=== PATIENT | male | born 1930 | race Caucasian/White ===

== ENCOUNTER 2020-10-12 22:09 | Inpatient (IN) | payer MEDICARE, BC ==
[2020-10-12] MEDS ORDERED: Ketorolac Tromethamine 30 MG/ML VIAL IVP PRN (22:23)
[2020-10-12] MEDS ORDERED: Morphine 4 MG/ML VIAL SLOW IVP PRN (22:25)
[2020-10-12] MEDS ORDERED: Ondansetron ODT 8 MG TAB PO PRN (22:28)
[2020-10-12] MEDS ORDERED: CEFAZOLIN 2 GM in Premix Bag 1 BAG IVPB SCH (22:30)
[2020-10-12] MEDS ORDERED: Ketorolac Tromethamine 30 MG/ML VIAL IVP SCH (22:30)
[2020-10-12] MEDS: Lactated Ringer's 1,000 ML IV SCH (22:50)
[2020-10-13 00:05] VITALS: BMI 26.3
[2020-10-13] MEDS: Ondansetron PF 4 MG/2 ML Vial IVP PRN ×2 (01:01→18:11)
[2020-10-13] MEDS: Lactated Ringer's 1,000 ML IV SCH ×2 (08:50→17:36)
[2020-10-13] MEDS ORDERED: Lidocaine 1% w/Epinephrine 1:100K 20 ML VIAL ONE (10:26)
[2020-10-13] MEDS ORDERED: Bupivacaine PF 0.5% 30 ML VIAL ONE (10:26)
[2020-10-13] MEDS ORDERED: Fentanyl 100 MCG/2 ML VIAL ONE ×2 (10:31→13:36)
[2020-10-13] MEDS ORDERED: Lidocaine 2% Jelly 5 ML TUBE ONE (10:53)
[2020-10-13] MEDS ORDERED: PROPOFOL 200 MG/20 ML VIAL ONE (10:55)
[2020-10-13] MEDS ORDERED: Labetalol HCl 100 MG/20 ML VIAL ONE (10:55)
[2020-10-13] MEDS ORDERED: Rocuronium Bromide 10 MG/ML (10ML VIAL) ONE (10:55)
[2020-10-13] MEDS ORDERED: Succinylcholine 200 MG/10 ml SYRINGE FS ONE (10:55)
[2020-10-13] MEDS ORDERED: Lidocaine 1% PF 5 ML VIAL ONE (10:55)
[2020-10-13] MEDS ORDERED: Glycopyrrolate 0.2 MG/ML 5 ML SYRINGE ONE (10:55)
[2020-10-13] MEDS ORDERED: ePHEDrine Sulfate 50 MG/10 ML VIAL ONE (10:55)
[2020-10-13] MEDS ORDERED: Ondansetron PF 4 MG/2 ML Vial ONE (10:55)
[2020-10-13] MEDS ORDERED: Ibuprofen 600 MG TAB PO PRN (12:36)
[2020-10-13] MEDS ORDERED: traMADol HCl 50 MG TAB PO PRN (12:36)
[2020-10-13] MEDS: Acetaminophen 500 MG TAB PO PRN (16:32)
[2020-10-13] MEDS: Amlodipine 10 MG TAB PO SCH (21:20)
[2020-10-13] MEDS: Pregabalin 75 MG CAP PO SCH (21:20)
[2020-10-13] MEDS: Enoxaparin Sodium 40 MG/0.4 ML SYRINGE SC SCH (21:21)
[2020-10-13] MEDS: Venlafaxine XR 37.5 MG CAP PO SCH (21:22)
[2020-10-14] MEDS: Ondansetron PF 4 MG/2 ML Vial IVP PRN ×3 (01:30→23:28)
[2020-10-14] MEDS ORDERED: Promethazine HCl 25 MG/ML VIAL IM SCH (01:45)
[2020-10-14] MEDS: Lactated Ringer's 1,000 ML IV SCH ×3 (04:50→23:31)
[2020-10-14 06:19] LABS: Actual Bicarbonate (HCO3a) 27.8 mEq/L (22-28); Base Excess (BEa) 3.5 mEq/L (-2.0 to +3.0); Calcium, Ionized (arterial) 1.08 mmol/L (1.12-1.30); Carboxyhemoglobin (COHb) 0.9 gm% (0.0-3.0); Hemoglobin (Hb) 12.9 g/dL (14.0-18.0); Potassium - ABG Lab 3.61 mmol/L (3.70-5.30); pH, Arterial 7.45 (7.35-7.45)
[2020-10-14 06:24] LABS: O2 Tension (PaO2), arterial 52.5 mmHg (> 60.0)
[2020-10-14 06:25] LABS: Puncture Site LBA
[2020-10-14 10:20] LABS: Hemoglobin 12.4 g/dL (14.0-18.0); Mean Corpuscular HGB CONC 34.2 g/dL (32.0-36.0); Mean Corpuscular Hemoglobin 34.1 pg (27.0-31.0); Mean Corpuscular Volume 99.7 fL (78.0-98.0); Mean Platelet Volume 8.1 fL (7.4-10.4); Platelet Count 148 thou/uL (130-400); RBC Distribution Width 12.6 % (11.5-14.5); Red Blood Cell (RBC) Count 3.62 mill/uL (4.70-6.10); White Blood Cell (WBC) Count 6.9 thou/uL (4.8-10.8)
[2020-10-14] MEDS ORDERED: Venlafaxine HCl XR 75 MG CAP PO SCH (10:30)
[2020-10-14 10:39] LABS: ALT (SGPT) 12 U/L (8-55); AST (SGOT) 29 U/L (5-34); Albumin 3.5 g/dL (3.4-4.8); Alkaline Phosphatase 63 U/L (40-110); Anion Gap 11 mmol/L (10-20); BUN (Urea Nitrogen) 19 mg/dL (8.4-25.7); Bilirubin, Total 0.7 mg/dL (0.2-1.2); Calc. Creatinine Clearance 88 mL/min (70-130); Calcium 8.4 mg/dL (7.8-10.44); Carbon Dioxide 26 mmol/L (23-31); Chloride 105 mmol/L (98-107); Glucose 114 mg/dL (83-110); Potassium 3.9 mmol/L (3.5-5.1); Protein, Total 6.5 g/dL (5.8-8.1); Sodium 138 mmol/L (136-145)
[2020-10-14 10:43] LABS: Band 33 % (5-11); Lymphocytes 12 % (21-51); MDiff Complete? YES; Monocytes 1 % (0-10); Neutrophil 54 % (42-75); Platelet Morphology Comment Appears Adequate; RBC Morphology Normal
[2020-10-14] MEDS: Venlafaxine XR 37.5 MG CAP PO SCH (11:22)
[2020-10-14] MEDS: Pregabalin 75 MG CAP PO SCH ×2 (11:23→21:11)
[2020-10-14] MEDS: Acetaminophen 500 MG TAB PO PRN (11:28)
[2020-10-14] MEDS: Cefepime 2 GM in Sodium Chloride 0.9% 100 ML IVPB SCH (13:39)
[2020-10-14] MEDS: methylPREDNISolone Sod Succ 40 MG VIAL IVP SCH (17:31)
[2020-10-14] MEDS: Enoxaparin Sodium 40 MG/0.4 ML SYRINGE SC SCH (21:11)
[2020-10-14] MEDS: Venlafaxine HCl XR 75 MG CAP PO SCH (21:11)
[2020-10-14] MEDS: Amlodipine 10 MG TAB PO SCH (23:16)
[2020-10-14] MEDS: Lorazepam 1 MG TAB PO PRN (23:26)
[2020-10-15] MEDS: Cefepime 2 GM in Sodium Chloride 0.9% 100 ML IVPB SCH ×2 (01:58→13:07)
[2020-10-15 03:42] LABS: #Lymphocytes 0.6 thou/uL (1.20-3.40); #Monocytes 0.3 thou/uL (0.11-0.59); #Neutrophils 6.5 thou/uL (1.40-6.50); %Eosinophils 0.2 % (0.0-10.0); %Lymphocytes 7.7 % (21.0-51.0); %Monocytes 3.5 % (0.0-10.0); %Neutrophils 88.7 % (42.0-75.0); Hemoglobin 11.2 g/dL (14.0-18.0); Mean Corpuscular HGB CONC 33.9 g/dL (32.0-36.0); Mean Platelet Volume 7.8 fL (7.4-10.4); Platelet Count 146 thou/uL (130-400); RBC Distribution Width 12.3 % (11.5-14.5); Red Blood Cell (RBC) Count 3.31 mill/uL (4.70-6.10); White Blood Cell (WBC) Count 7.3 thou/uL (4.8-10.8)
[2020-10-15 03:52] LABS: ALT (SGPT) 12 U/L (8-55); AST (SGOT) 26 U/L (5-34); Albumin 3.1 g/dL (3.4-4.8); Alkaline Phosphatase 56 U/L (40-110); Anion Gap 9 mmol/L (10-20); BUN (Urea Nitrogen) 16 mg/dL (8.4-25.7); Bilirubin, Total 0.5 mg/dL (0.2-1.2); Calc. Creatinine Clearance 99 mL/min (70-130); Calcium 8.2 mg/dL (7.8-10.44); Carbon Dioxide 26 mmol/L (23-31); Chloride 106 mmol/L (98-107); Globulin 2.8 g/dL (2.4-3.5); Glucose 143 mg/dL (83-110); Potassium 3.8 mmol/L (3.5-5.1); Protein, Total 5.9 g/dL (5.8-8.1); Sodium 137 mmol/L (136-145)
[2020-10-15] MEDS: Pregabalin 75 MG CAP PO SCH ×2 (09:17→20:43)
[2020-10-15] MEDS: Venlafaxine HCl XR 75 MG CAP PO SCH ×2 (09:18→20:47)
[2020-10-15] MEDS: Lactated Ringer's 1,000 ML IV SCH (13:07)
[2020-10-15] MEDS: methylPREDNISolone Sod Succ 40 MG VIAL IVP SCH (17:20)
[2020-10-15] MEDS ORDERED: Lactated Ringer's 1,000 ML IV SCH (18:57)
[2020-10-15] MEDS: Amlodipine 10 MG TAB PO SCH (20:43)
[2020-10-15] MEDS: Enoxaparin Sodium 40 MG/0.4 ML SYRINGE SC SCH (20:44)
[2020-10-15] MEDS: Lorazepam 1 MG TAB PO PRN (20:44)
[2020-10-15] MEDS: Latanoprost 0.005% Ophth Soln 2.5 ml Bottle EA EYE SCH (20:45)
[2020-10-16] MEDS: Cefepime 2 GM in Sodium Chloride 0.9% 100 ML IVPB SCH ×2 (01:28→15:13)
[2020-10-16 03:50] LABS: #Lymphocytes 0.5 thou/uL (1.20-3.40); #Monocytes 0.3 thou/uL (0.11-0.59); #Neutrophils 6.4 thou/uL (1.40-6.50); %Basophils 0.2 % (0.0-1.0); %Eosinophils 0.1 % (0.0-10.0); %Lymphocytes 6.7 % (21.0-51.0); %Monocytes 4.5 % (0.0-10.0); %Neutrophils 88.5 % (42.0-75.0); Hemoglobin 11.2 g/dL (14.0-18.0); Mean Corpuscular HGB CONC 33.6 g/dL (32.0-36.0); Mean Corpuscular Hemoglobin 33.5 pg (27.0-31.0); Mean Corpuscular Volume 99.7 fL (78.0-98.0); Platelet Count 162 thou/uL (130-400); RBC Distribution Width 12.2 % (11.5-14.5); Red Blood Cell (RBC) Count 3.34 mill/uL (4.70-6.10); White Blood Cell (WBC) Count 7.2 thou/uL (4.8-10.8)
[2020-10-16 04:16] LABS: ALT (SGPT) 15 U/L (8-55); AST (SGOT) 25 U/L (5-34); Albumin 3.2 g/dL (3.4-4.8); Alkaline Phosphatase 62 U/L (40-110); Anion Gap 14 mmol/L (10-20); BUN (Urea Nitrogen) 13 mg/dL (8.4-25.7); Bilirubin, Total 0.4 mg/dL (0.2-1.2); Calc. Creatinine Clearance 99 mL/min (70-130); Calcium 8.4 mg/dL (7.8-10.44); Carbon Dioxide 22 mmol/L (23-31); Chloride 103 mmol/L (98-107); Globulin 2.9 g/dL (2.4-3.5); Glucose 149 mg/dL (83-110); Potassium 3.8 mmol/L (3.5-5.1); Protein, Total 6.1 g/dL (5.8-8.1); Sodium 135 mmol/L (136-145)
[2020-10-16] MEDS: Venlafaxine HCl XR 75 MG CAP PO SCH ×2 (08:43→20:21)
[2020-10-16] MEDS: Pregabalin 75 MG CAP PO SCH ×2 (08:44→20:21)
[2020-10-16] MEDS ORDERED: Milk Of Magnesia 30 ML UDCUP PO SCH (10:45)
[2020-10-16] MEDS: methylPREDNISolone Sod Succ 40 MG VIAL IVP SCH (17:28)
[2020-10-16] MEDS: Enoxaparin Sodium 40 MG/0.4 ML SYRINGE SC SCH (20:20)
[2020-10-16] MEDS: Cefdinir 300 MG CAP PO SCH (20:21)
[2020-10-16] MEDS: Amlodipine 10 MG TAB PO SCH (20:21)
[2020-10-16] MEDS: Citrucel 500 MG TAB PO SCH (20:21)
[2020-10-16] MEDS: Latanoprost 0.005% Ophth Soln 2.5 ml Bottle EA EYE SCH (20:22)
[2020-10-16] MEDS: Polyethylene Glycol 3350 17 GM Packet PO SCH (20:23)
[2020-10-16] MEDS: Acetaminophen 500 MG TAB PO PRN (23:56)
[2020-10-17] MEDS: Citrucel 500 MG TAB PO SCH (09:11)
[2020-10-17] MEDS: Polyethylene Glycol 3350 17 GM Packet PO SCH (09:11)
[2020-10-17] MEDS: Pregabalin 75 MG CAP PO SCH (09:12)
[2020-10-17] MEDS: Cefdinir 300 MG CAP PO SCH (09:12)
[2020-10-17] MEDS: Venlafaxine HCl XR 75 MG CAP PO SCH (09:12)
[2020-10-17] MEDS: Acetaminophen 500 MG TAB PO PRN (10:41)
[2020-10-17 11:37] VITALS: BP 154/87; TEMP 97.6
[2020-10-17] MEDS ORDERED: Fleet Enema 133 ML BOT PR SCH (12:45)
== END 2020-10-17 15:00 | disposition home or self-care (01) | DRG 353 ==
LOC: SURG A 22:09 → IMCU/EMU 10-14 07:22 → SURG A 10-17 06:57
PROVIDERS: ADMIT Specialist; ATTEND Specialist
PROC: 0WUF0JZ Supplement Abdominal Wall with Synthetic Substitute, Open Approach (ICD-10-PCS; principal; 2020-10-13)
DX: K43.0 Incisional hernia with obstruction, without gangrene (principal); J18.9 Pneumonia, unspecified organism; K42.0 Umbilical hernia with obstruction, without gangrene; K44.9 Diaphragmatic hernia without obstruction or gangrene; I10 Essential (primary) hypertension; M17.11 Unilateral primary osteoarthritis, right knee; Z20.822 Contact with and (suspected) exposure to COVID-19; Z90.49 Acquired absence of other specified parts of digestive tract; Z98.890 Other specified postprocedural states; Z85.46 Personal history of malignant neoplasm of prostate
CPT/HCPCS: 36415; 36600; 74022; 80053; 82805; 83880; 85025; 87040; 94660; C1781; J0690; J0692; J1650; J1885; J2270; J2405; J2550; J2704; J2920; J3010; J3490; S0020

== ENCOUNTER 2020-10-25 21:38 | Emergency (ER) | payer MEDICARE, BC ==
[2020-10-25 22:02] LABS: Bilirubin Negative (Negative); Blood, Urine Negative (Negative); Clarity Clear (Clear); Glucose, Urine (Dipstick) Normal (Negative); Ketone, Urine Negative (Negative); Leukocyte Negative Leu/uL (Negative); Nitrite Negative (Negative); Protein, Urine (Dipstick) Negative (Neg-Trace); Urobilinogen Normal mg/dL (Less than 2)
[2020-10-25] MEDS ORDERED: Morphine 4 MG/ML VIAL ONE (22:16)
[2020-10-25] MEDS ORDERED: Ondansetron PF 4 MG/2 ML Vial ONE (22:16)
[2020-10-25 22:27] LABS: #Eosinphils 0.5 thou/uL (0.0-0.7); #Lymphocytes 1.4 thou/uL (1.20-3.40); #Monocytes 0.8 thou/uL (0.11-0.59); #Neutrophils 3.7 thou/uL (1.40-6.50); %Basophils 0.7 % (0.0-1.0); %Eosinophils 8.4 % (0.0-10.0); %Lymphocytes 21.9 % (21.0-51.0); %Monocytes 12.7 % (0.0-10.0); %Neutrophils 56.3 % (42.0-75.0); Hemoglobin 11.9 g/dL (14.0-18.0); Mean Corpuscular HGB CONC 32.5 g/dL (32.0-36.0); Mean Corpuscular Hemoglobin 32.8 pg (27.0-31.0); Mean Platelet Volume 6.7 fL (7.4-10.4); Platelet Count 350 thou/uL (130-400); RBC Distribution Width 12.5 % (11.5-14.5); Red Blood Cell (RBC) Count 3.63 mill/uL (4.70-6.10); White Blood Cell (WBC) Count 6.5 thou/uL (4.8-10.8)
[2020-10-25 22:54] LABS: ALT (SGPT) 14 U/L (8-55); AST (SGOT) 22 U/L (5-34); Albumin 3.7 g/dL (3.4-4.8); Alkaline Phosphatase 84 U/L (40-110); Anion Gap 17 mmol/L (10-20); BUN (Urea Nitrogen) 17 mg/dL (8.4-25.7); Bilirubin, Total 0.3 mg/dL (0.2-1.2); Calc. Creatinine Clearance 0 mL/min (70-130); Calcium 8.7 mg/dL (7.8-10.44); Carbon Dioxide 22 mmol/L (23-31); Chloride 104 mmol/L (98-107); Globulin 3.2 g/dL (2.4-3.5); Glucose 90 mg/dL (83-110); Lipase 44 U/L (8-78); Potassium 4.2 mmol/L (3.5-5.1); Protein, Total 6.9 g/dL (5.8-8.1); Sodium 139 mmol/L (136-145)
[2020-10-25] MEDS ORDERED: Lidocaine Viscous Sol 2% 15 ml UD Cup ONE (23:57)
[2020-10-25] MEDS ORDERED: Mag-Al 1200 mg/1200 mg/30 ML UDCUP ONE (23:57)
== END 2020-10-26 00:42 | disposition home or self-care (01) ==
LOC: ERS 21:38
DX: G89.18 Other acute postprocedural pain (principal); R10.9 Unspecified abdominal pain; I10 Essential (primary) hypertension; Z79.899 Other long term (current) drug therapy
CPT/HCPCS: 36415; 71045; 80053; 81003; 83690; 84484; 85025; 93005; 96374; 96375; J2270; J2405